=== PATIENT | female | born 1975 | race African-American/Black ===

== ENCOUNTER 2018-03-06 23:16 | Emergency (ER) | payer MEDICAID ==
[~2018-03-06] VITALS: Ht 175.3 cm; Wt 120.5 kg
[~2018-03-06 23:16] MED LIST: GABA-531 PO; NORT10 PO
[2018-03-06] MEDS ORDERED: LORA10TA7 PO (23:27)
[2018-03-06] MEDS ORDERED: CYAN100 PO (23:27)
[2018-03-06] MEDS ORDERED: NAPR-58 PO (23:27)
[2018-03-06] MEDS ORDERED: CHOL50004 PO (23:27)
[2018-03-07] MEDS ORDERED: LIDOCAINE 2%/EPI 1:200,000/PF 20 ML VIAL INJ ONE (02:15)
[2018-03-07] MEDS ORDERED: HYDROCODONE/ACETAMINOPHEN 5-325 MG TABLET PO ONE (02:15)
[2018-03-07] MEDS ORDERED: LIDOCAINE 2%/EPI 1:200,000/PF 10 ML VIAL INJ ONE (02:15)
[2018-03-07] MEDS ORDERED: SODIUM CHLORIDE 0.9% 250 ML IRRIG SOLUTION BOTTLE IRRIG ONE (02:15)
[2018-03-07 04:11] VITALS: BP 136/85
== END 2018-03-07 04:23 | disposition home or self-care (01) ==
LOC: EMS 23:16
DX: S51.812A Laceration without foreign body of left forearm, initial encounter (principal); F17.210 Nicotine dependence, cigarettes, uncomplicated; M79.662 Pain in left lower leg; G89.29 Other chronic pain; Z79.899 Other long term (current) drug therapy; X58.XXXA Exposure to other specified factors, initial encounter; Y93.89 Activity, other specified; Y92.89 Other specified places as the place of occurrence of the external cause; Y99.8 Other external cause status
CPT/HCPCS: 12004; 99283; J2001